=== PATIENT | female | born 1995 | race African-American/Black ===

== ENCOUNTER 2017-01-30 15:41 | Emergency (ER) | payer OTHER ==
[~2017-01-30] VITALS: Ht 165.1 cm; Wt 73.0 kg
[2017-01-30 16:08] VITALS: BP 111/60
== END 2017-01-30 18:24 | disposition left against medical advice (07) ==
LOC: ER 16:15
DX: R10.9 Unspecified abdominal pain (principal); Z53.21 Procedure and treatment not carried out due to patient leaving prior to being seen by health care provider